=== PATIENT | female | born 1965 | race Caucasian/White ===

== ENCOUNTER 2025-05-20 13:36 | Emergency (ER) | payer MEDICAID ==
[~2025-05-20] VITALS: Ht 172.7 cm; Wt 90.0 kg
[2025-05-20 13:39] VITALS: O2SAT 97
[2025-05-20 14:55] LABS: BASOPHILS % 0.1 % (0.0-2.0); EOSINOPHILS % 0.4 % (0.0-5.0); HEMATOCRIT. 38.0 % (36.0-48.0); HEMOGLOBIN. 12.7 g/dL (12.0-16.0); LYMPHOCYTES % 15.1 % (20.0-50.0); MEAN PLATELET VOLUME 9.6 fl (7.4-10.4); MONOCYTES % 4.5 % (2.0-8.0); NEUTROPHILS % 79.9 % (40.0-76.0); PLATELET 241 x1000/uL (130-400); RED BLOOD CELL COUNT 3.93 mill/uL (4.2-5.4); RED CELL DISTRIBUTION WIDTH 12.7 % (11.6-14.6)
[2025-05-20 15:03] LABS: CREATININE 1.0 mg/dL (0.6-1.0); UREA NITROGEN BLOOD 19.0 mg/dL (9-23)
[2025-05-20] MEDS ORDERED: ONDA-241 MT (16:41)
[2025-05-20 17:29] VITALS: BP 116/60; PULSE 68; RESP 16; TEMP 36.7; O2SAT 100
== END 2025-05-20 17:30 | disposition home or self-care (01) ==
LOC: ER 13:36 → EDBD 13:36 → ER 17:30
DX: R55 Syncope and collapse (principal); I95.9 Hypotension, unspecified
CPT/HCPCS: 36415; 71045; 80048; 85025; 93005; 99285